=== PATIENT | female | born 1955 | race Caucasian/White ===

== ENCOUNTER 2016-07-29 12:12 | Emergency (ER) | payer SELFPAY ==
[~2016-07-29] VITALS: Ht 167.6 cm; Wt 55.8 kg
[~2016-07-29 12:12] MED LIST: NAPROXEN500 MG PO; ULTRAM50 MG PO
[2016-07-29] MEDS ORDERED: KEFLEX500 MG PO (14:30)
[2016-07-29 14:51] VITALS: BP 147/90
== END 2016-07-29 14:52 | disposition home or self-care (01) ==
LOC: EME 12:12
PROC: 3E0234Z Introduction of Serum, Toxoid and Vaccine into Muscle, Percutaneous Approach (ICD-10-PCS; principal; 2016-07-29)
DX: S61.411A Laceration without foreign body of right hand, initial encounter (principal); W25.XXXA Contact with sharp glass, initial encounter; Y93.G1 Activity, food preparation and clean up; Z23 Encounter for immunization; Z72.0 Tobacco use
CPT/HCPCS: 99281; 99283